=== PATIENT | male | born 1970 | race Caucasian/White ===

== ENCOUNTER 2025-03-21 17:04 | Emergency (ER) | payer BC, SELFPAY ==
[2025-03-21 17:05] VITALS: BP 154/107; PULSE 94; RESP 24; TEMP 36; O2SAT 94
--- NOTE | 2025-03-21 17:18 | CT_ITS ---
PROCEDURE: CTA CHEST W/WO CONTRAST 03/21/2025 REASON FOR EXAM: LEFT CHEST PAIN TECHNIQUE: CTA CHEST W/WO CONTRAST Multiplanar Sagittal and Coronal images were obtained. 3D post processing was performed CONTRAST: Isovue 370 VOLUME: 100 mL One or more dose reduction techniques were used (e.g., Automated exposure control, adjustment of the mA and/or kV according to patient size, use of iterative reconstruction technique). RADIATION DOSE SUMMARY: CTDlvol: 15.8 mGy DLP: 615 mGycm COMPARISON: None FINDINGS: Lymph nodes: No significant thoracic lymphadenopathy. Heart: Unremarkable, without significant coronary calcification. No pericardial effusion. Thoracic Aorta: No thoracic aortic aneurysm or dissection. Pulmonary Vessels: No evidence of acute pulmonary emboli through the lobar branches. Evaluation of the more distal vessels is limited due to contrast timing. Lungs and Airways: Nonobstructing debris near the nitza. Apical predominant centrilobular emphysema. There is rounded and linear consolidation at the left lung base with associated volume loss. There is linear scarring or atelectasis at the right lung base. Noncalcified perifissural nodule measuring 4 mm in the right middle lobe (series 2, image 170). Pleura: Trace left pleural effusion Upper Abdomen: Cholelithiasis. Right adrenal nodule measuring 2.3 cm and -10 Hounsfield units. Bones: There is expansile appearance of the left lateral 4th rib. Healing fracture of the right anterior 6th rib sequela of vertebroplasty at T8. Degenerative changes of the thoracic spine. Diffuse osteopenia. Soft tissues: CT/CTA Chest W/WO Contrast IMPRESSION: 1. No pulmonary embolism to the lobar level. 2. Rounded and linear consolidation at the left lung base with associated volu me loss, likely representing atelectasis or scarring, with infection also possible. Additionally, there is a trace left pl eural effusion. Consider repeat imaging in 3 months to assess stability in this patient with known history of malignancy. 3. Expansile appearance of the left lateral 4th rib, worrisome for involvement of patient's known multiple myeloma. 4. Solid nodule in the right middle lobe measuring 4 mm. Recommend attention on the follow-up imaging detailed above. 5. Nonobstructing debris in the trachea may place this patient at increased ri sk for aspiration. 6. Right adrenal nodule measuring 2.3 cm, likely a benign adenoma. Recommend attention on future imaging. Reading Location: [facility]
--- NOTE | 2025-03-21 17:18 | EKG12_ITS ---
Test Reason : CP Blood Pressure : */* mmHG Vent. Rate : 86 BPM Atrial Rate : 86 BPM P-R Int : 188 ms QRS Dur : 102 ms QT Int : 366 ms P-R-T Axes : 47 -15 46 degrees QTcB Int : 437 ms Normal sinus rhythm Normal ECG Confirmed by Erich Whaley ([id number]), proposal editor RIGO SEPULVEDA ([id number]) on 03/23/2025 1:11:03 PM Referred By: RU Confirmed By: Erich Whaley
--- NOTE | 2025-03-21 17:19 | ED.VIS.CHEST ---
HPI History of Present Illness Chief Complaint: Chest Pain Detail of Chief Complaint: Chest pain Informant: patient Narrative Narrative: Patient presents with left-sided chest pain that started suddenly about an hour and a half ago. Patient was walking at the time. He describes a sharp stabbing pain in his left chest. Gives history of recent kyphoplasty on March 17. Patient also with history of multiple myeloma. Denies fevers chills or sweats. No heart history. Pain worse with movement and deep breath. [facility] Medical History (Updated 03/21/25 @ 19:[address] Cesar Willard, DO) Multiple myeloma COPD (chronic obstructive pulmonary disease) Home Medications ?Medication ?Instructions ?Recorded ?Last Taken ?Type acyclovir 200 mg capsule 400 mg PO BID 03/21/25 Unknown History albuterol sulfate 90 mcg/actuation 2 puff inhalation Q6H PRN PRN 03/21/25 Unknown History aerosol inhaler dyspnea amlodipine 10 mg tablet 10 mg PO DAILY 03/21/25 Unknown History aspirin 81 mg tablet,delayed 81 mg PO DAILY 03/21/25 Unknown History release atorvastatin 20 mg tablet 20 mg PO QHS 03/21/25 Unknown History dexamethasone 4 mg tablet 20 mg PO QWEEK 03/21/25 Unknown History diphenhydramine HCl 50 mg capsule 50 mg PO TID PRN PRN itch 03/21/25 Unknown History (Banophen) fluticasone fur. 200 mcg-umeclid 1 ea inhalation DAILY 03/21/25 Unknown History 62.5 mcg-vilant 25 mcg inhalat.powder (Trelegy Ellipta) lenalidomide 25 mg capsule 25 mg PO DAILY 03/21/25 Unknown History metformin 500 mg tablet,extended 500 mg PO TID 03/21/25 Unknown History release 24 hr ondansetron HCl 8 mg tablet 8 mg PO Q8H PRN PRN nausea/vomiting 03/21/25 Unknown History oxycodone 5 mg tablet 5 mg PO Q6H PRN PRN pain 03/21/25 Unknown History sennosides 8.6 mg tablet (senna) 17.2 mg PO BID PRN PRN constipation 03/21/25 Unknown History sulfamethoxazole 800 1 tab PO .COMPLEX 03/21/25 Unknown History mg-trimethoprim 160 mg tablet varenicline tartrate 1 mg tablet 1 mg PO BID 03/21/25 Unknown History Allergy/AdvReac Type Severity Reaction Status Date / Time No Known Allergies Allergy Verified 03/21/25 17:06 Social History Smoking Status: Current some day smoker tobacco type: cigarettes ROS ROS ED Review of Systems ROS Unobtainable: other Constitutional Constitutional ED: Reports lethargy; Denies chills, fever(s), sweats or weight loss Eyes Eyes: Denies blurry vision, change in vision or diplopia ENT ENT ED: Denies rhinorrhea or sore throat Cardiovascular Cardiovascular: Reports chest pain; Denies orthopnea or racing heartbeat Respiratory/Chest Respiratory/Chest: Denies cough, dyspnea, dyspnea on exertion, orthopnea or sputum Gastrointestinal Gastrointestinal: Denies abdominal pain, diarrhea, nausea or vomiting Genitourinary Genitourinary ED: Denies dysuria, hematuria or urinary frequency Musculoskeletal Musculoskeletal: Denies arthralgias, back pain, myalgias or neck pain Integumentary Denies abscess, Abrasions or rash Neurologic Neurologic: Denies headache(s) or weakness Psychiatric Psychiatric: Denies anxiety, depression or suicidal thoughts Endocrine Endocrinology: Denies polydipsia, polyphagia or polyuria Hematologic/Lymphatic Hematologic/Lymphatic: Denies easy bleeding, easy bruising or lymphadenopathy Allergic/Immunologic Allergic/Immunologic ED: Denies mouth swelling, tongue swelling or urticaria EXAM Physical Exam Const Vital Signs: 03/21/25 17:05 03/21/25 17:14 03/21/25 17:36 Temperature 96.8 F L Temperature Source Temporal Pulse Rate 94 Respiratory Rate 24 H Respiratory Effort Normal Blood Pressure 154/107 H Blood Pressure Mean 122 Pulse Ox 94 Oxygen Delivery Method Room Air Room Air 03/21/25 18:04 03/21/25 19:00 Temperature Temperature Source Pulse Rate 88 81 Respiratory Rate 22 H 16 Respiratory Effort Blood Pressure 138/106 H 126/89 H Blood Pressure Mean 116 101 Pulse Ox 93 91 Oxygen Delivery Method Room Air Room Air Positive well nourished and well developed General Appearance ED: well developed and NAD HEENT Reports TM's clear and moist mucous membranes normocephalic and atraumatic; Negative for trauma or tenderness Tympanic Membrane ED: Yes TM's clear Eyes PERRL and EOMs intact bilaterally General Eye ED: Negative for pale conjunctiva or scleral icterus Neck no lymphadenopathy, supple and no JVD General: Negative for tenderness Chest Wall inspection of chest normal and palpation of chest normal Chest: Negative for tenderness Resp normal respiratory effort and clear to auscultation bilaterally Effort and Inspection: Negative for respiratory distress or pain with movement Auscultation: Negative for rhonchi, wheezes or diminished lung sounds Cardio regular rate, regular rhythm, S1 normal heart sound, S2 normal heart sound and no murmurs Peripheral Pulses: pulses 2+ throughout GI normal to inspection, nondistended, normoactive bowel sounds, soft to palpation, non-tender, non-distended and no masses Back/Spine no CVA tenderness and no thoracic nor lumbar tenderness Extremity normal to inspection General Extremety ED: Negative for edema General Extremity: Negative for edema Neuro oriented x3, CN's II-XII intact bilaterally, no sensory deficits noted and gait normal Sensorium / Orientation: awake, alert, oriented to person, oriented to place and oriented to time Motor Exam: strength 5/5 throughout and strength abnormal Psych mental status grossly normal Skin no rashes or lesions noted and no wounds Heart Score History: Slightly/Non-Suspicious ECG: Normal Age: >45 - <65 years Risk Factors: 1 or 2 Risk Factors Troponin: </= Normal Limit Score: 2 MDM MDM MDM Narrative Medical decision making narrative: Patient presents with left chest wall pain that started suddenly an hour and a half ago. Denies any injury. Pleuritic and worse with movement especially movement of his left arm. Patient with history of multiple myeloma and receiving care chemotherapy weekly. No history of recent travel. He did have kyphoplasty to T8 vertebrae on the 16th of the month. Clinically looks well. I will establish. Was medicated with morphine and Zofran and then was given a milligram of Dilaudid IV. CBC with differential obtained showing of 8.0 with hemoglobin 13.3 and platelet count of 337. Chemistry is unremarkable. Troponin is normal at 7. I did obtain a CTA of the chest to rule out PE and this was negative for PE or dissection. He did have an expansile left fourth rib lesion likely related to his multiple myeloma. Patient also noted to have sequela changes related to the kyphoplasty at T8. Patient also had some linear consolidation left lung base with associated volume loss likely representing atelectasis or scarring with infection also possible. Clinically he has not been ill and I do not think this is infectious. Patient will be discharged home and advised to follow-up with his oncologist. He has oxycodone for pain at home and he is to continue with that. I do not feel he has an acute coronary syndrome. Lab Data Attestation: I reviewed the patient's lab results. Labs: Laboratory Results - last 24 hr 03/21/25 17:12 WBC 8.0 RBC 4.30 L Hgb 13.3 Hct 38.3 L MCV 89.1 MCH 30.9 MCHC 34.7 RDW Std Deviation 48.9 H RDW Coeff of Emmett 15.0 H Plt Count 337 MPV 9.8 Immature Gran % (Auto) 0.200 Neut % (Auto) 55.7 Lymph % (Auto) 34.0 [place] % (Auto) 8.3 Eos % (Auto) 1.4 Baso % (Auto) 0.4 Absolute Neuts (auto) 4.5 Absolute Lymphs (auto) 2.73 Nucleated RBC % 0 Sodium 138 Potassium 4.1 Chloride 101 Carbon Dioxide 24.3 Anion Gap 13 BUN 18 Creatinine 0.91 Estim Creat Clear Calc 125.74 Est GFR (MDRD) Non-Af 99 BUN/Creatinine Ratio 19.7 Glucose 104 H Calcium 10.2 Troponin T High Sens 7 Radiography Diagnostic Testing: Clinical Impression(s) from Imaging Studies Chest CTA 03/21/25 17:18 IMPRESSION: 1. No pulmonary embolism to the lobar level. 2. Rounded and linear consolidation at the left lung base with associated volume loss, likely representing atelectasis or scarring, with infection also possible. Additionally, there is a trace left pleural effusion. Consider repeat imaging in 3 months to assess stability in this patient with known history of malignancy. 3. Expansile appearance of the left lateral 4th rib, worrisome for involvement of patient's known multiple myeloma. 4. Solid nodule in the right middle lobe measuring 4 mm. Recommend attention on the follow-up imaging detailed above. 5. Nonobstructing debris in the trachea may place this patient at increased risk for aspiration. 6. Right adrenal nodule measuring 2.3 cm, likely a benign adenoma. Recommend attention on future imaging. Reading Location: [facility] EKG Initial EKG: Attestation: I personally reviewed and interpreted this EKG as follows: Comments: Sinus rhythm with rate of 86 bpm with no acute ST segment changes Discharge Plan Triage Chief Complaint: Chest Pain ED Provider: Cesar Willard Dx/Rx/DC Orders Clinical Impression: Chest wall pain, Multiple myeloma Instructions: Multiple Myeloma Overview, ED Chest Pain, Uncertain Cause Prescriptions: No Action atorvastatin 20 mg tablet 20 mg PO QHS diphenhydramine HCl [Banophen] 50 mg capsule 50 mg PO TID PRN PRN (Reason: itch) aspirin 81 mg tablet,delayed release (DR/EC) 81 mg PO DAILY amlodipine 10 mg tablet 10 mg PO DAILY dexamethasone 4 mg tablet 20 mg PO QWEEK acyclovir 200 mg capsule 400 mg PO BID albuterol sulfate 90 mcg/actuation HFA aerosol inhaler 2 puff inhalation Q6H PRN PRN (Reason: dyspnea) Trelegy Ellipta 200-62.5-25 mcg blister with device 1 ea INHALATION DAILY lenalidomide 25 mg capsule 25 mg PO DAILY Rx Instructions: swallow whole with glass of water; do not open, crush, chew , break, or dissolve metformin 500 mg tablet extended release 24 hr 500 mg PO TID sennosides [senna] 8.6 mg tablet 17.2 mg PO BID PRN PRN (Reason: constipation) ondansetron HCl 8 mg tablet 8 mg PO Q8H PRN PRN (Reason: nausea/vomiting) sulfamethoxazole-trimethoprim 800-160 mg tablet 1 tab PO .COMPLEX Rx Instructions: 1 TAB orally Saturday, Saturday, Saturday; oxycodone 5 mg tablet 5 mg PO Q6H PRN PRN (Reason: pain) varenicline tartrate 1 mg tablet 1 mg PO BID Primary Care Provider: Sharyn Watts Referrals: Sharyn Watts [Other] Activity Restrictions/Additional Instructions: Follow-up with your oncologist within the next 3 to 5 days Print Language: Togolese Disposition Disposition: Home, Self Care
[2025-03-21] MEDS: 0.9% Normal Saline (1000mL) 1,000 ML 150 ML IV (17:27)
[2025-03-21 17:37] VITALS: BMI 38.5
--- OUTSIDE RECORDS SUMMARY | 2025-03-21 17:38 | XMS RPT_ITS | CCD ---
Author Organization [facility] Care Team Providers Care Ict Managers Name Role Phone PHYSICIAN, NONE Primary Care Physician Unavailab Pearl DYE, DR LUZ Vang Primary Care Physician CONOR DYE, DR LUZ Vang Primary Care Unavailable ERASMO DIAZ MD Attending Unavaila daniel PERDOMO MD, DR LUZ Vang Primary Care Unavailable DAVID DYE, DR WILFRED Rodriguez Attending Sushma shafer PHYSICIAN, NONE Primary Care Unavailable ZENAIDA BLANK MD Attending Unavailable LUIS DYE, DR QIU Admitting Unavailab jonathan PERDOMO MD, DR LUZ Vang Attending Unavailable CONOR DYE, DR LUZ Vang Primary Care Unavailable CONOR DYE, DR LUZ Vang Attending Unavailable CONOR DYE, DR LUZ Vang Primary Care Unavailable CONOR DYE, DR LUZ Vang Attending Unavailable PHYSICIAN, NONE Primary Care Unavailable CONOR DYE, DR LUZ Vang Attending Unavailable CONOR DYE, DR LUZ Vang Primary Care Unavailable NICOLE DYE, [facility] Primary Care Physician Unavailable Primary Care Provider Unavailrodolfo e Maura Moran DO Primary Care Provider SELF Referring Unavailable LONG, MARQUISE MATY Attending Unavailable LONG, MARQUISE MATY Referring Unavailable LONG, MARQUISE MATY Attending Unavailable MAURA MORAN Primary Care Unavailable LONG, MARQUISE MATY Referring Unavailable MAURA MORAN Primary Care Unavailable MAURA MORAN Primary Care Unavailable Milagros DYE, Howard Easton Unavailable MAURA MORAN DO Primary Care Physician Howadr Linares MD Unavailable Bharati PERRY, Lucia Unavailable [phone] Jakob Alvarado MD Unavailable [phone] JAKOB ALVARADO Referring Unavailable JAKOB ALVARADO Attending Unavailable HOEHNEN, MAURA C Primary Care Unavailable NICOLE DYE, TALIB Primary Care Unavailable MILAGROS DYE, DR LAWRENCE Attending Unavailable NICOLE DYE, TALIB Attending Unavailable NICOLE DYE, TALIB Primary Care Unavailable CONOR DYE, DR LUZ Vang Attending Unavailable NICOLE DYE, TALIB Primary Care Unavailable HOEHNEN DO, MAURA Attending Unavailable HOEHNEN DO, MAURA Primary Care Unavailable NICOLE DYE, TALIB Primary Care Unavailable MILAGROS DYE, DR LAWRENCE Attending Unavailable NICOLE DYE, TALIB Primary Care Unavailable MILAGROS DYE, DR LAWRENCE Attending Unavailable NICOLE DYE, TALIB Primary Care Unavailable MILAGROS DYE, DR LAWRENCE Attending Unavailable DR HOWARD LINARES MD Attending Unavailable HOEHNEN DO, MAURA Primary Care Unavailable NICOLE DYE, TALIB Primary Care Unavailable MILAGROS DYE, DR LAWRENCE Attending Unavailable NICOLE DYE, TALIB Primary Care Unavailable MILAGROS DYE, DR LAWRENCE Attending Unavailable MILAGROS DYE, DR LAWRENCE Attending Unavailable HOEHNEN DO, MAURA Primary Care Unavailable HOEHNEN DO, MAURA Attending Unavailable HOEHNEN DO, MAURA Primary Care Unavailable TEENA POSEY MD Attending Unavailable NICOLE DYE, TALIB Primary Care Unavailable HOEHNEN DO, MAURA Attending Unavailable HOEHNEN DO, AMURA Primary Care Unavailable HOEHNEN DO, MAURA Primary Care Unavailable MILAGROS DYE, DR LAWRENCE Attending Unavailable NARCISO MONTERO MD, I Attending Unavailable HOEHNEN DO, MAURA Primary Care Unavailable DR HOWARD LINARES MD Attending Unavailable NICOLE DYE, TALIB Primary Care Unavailable TEENA POSEY MD Attending Unavailable HOEHNEN DO, MAURA Primary Care Unavailable DR LUZ PERDOMO MD Attending Unavailable NICOLE DYE, [facility] Primary Care Unavailable NICOLE DYE, [facility] Primary Care Unavailable DR HOWARD LINARES MD Attending Unavailable HOEHNEN DO, MAURA Attending Unavailable NICOLE DYE, TALIB Primary Care Unavailable DR HOWARD LINARES MD Attending Unavailable NICOLE DYE, TALIB Primary Care Unavailable DR HOWARD LINARES MD Attending Unavailable NICOLE DYE, TALIB Primary Care Unavailable HOEHNEN DO, MAURA Attending Unavailable NICOLE DYE, TALIB Primary Care Unavailable HOEHNEN DO, MAURA Attending Unavailable NICOLE DYE, TALIB Primary Care Unavailable NICOLE DYE, TALIB Primary Care Unavailable DR HOWARD LINARES MD Attending Unavailable DIMITRIS DYE, DR SIMMS Attending Unavailable NICOLE DYE, TALIB Primary Care Unavailable DIMITRIS DYE, DR SIMMS Attending Unavailable NICOLE DYE, TALIB Primary Care Unavailable MILAGROS DYE, DR LAWRENCE Attending Unavailable HOEHNEN DO, MAURA Primary Care Unavailable MILAGROS DYE, DR LAWRENCE Attending Unavailable HOEHNEN DO, MAURA Primary Care Unavailable MILAGROS DYE, DR LAWRENCE Attending Unavailable HOEHNEN DO, MAURA Primary Care Unavailable NICOLE DYE, TALIB Primary Care Unavailable MILAGROS DYE, DR LAWRENCE Attending Unavailable NICOLE DYE, TALIB Primary Care Unavailable MILAGROS DYE, DR LAWRENCE Attending Unavailable NICOLE DYE, TALIB Primary Care Unavailable MILAGROS DYE, DR LAWRENCE Attending Unavailable NICOLE DYE, TALIB Primary Care Unavailable RHONDA FERRARI MD Attending Unavailable CEE CROFT Attending Manjula penelopeble NICOLE DYE, TALIB Primary Care Unavailable NICOLE DYE, TALIB Primary Care Unavailable RHONDA FERRARI MD Attending Unavailable NICOLE DYE, TALIB Primary Care Unavailable DR HOWARD LINARES MD Attending Unavailable HOEHNEN DO, MAURA Attending Unavailable NICOLE DYE, TALIB Primary Care Unavailable HOEHNEN DO, MAURA Attending Unavailable NICOLE DYE, TALIB Primary Care Unavailable NICOLE DYE, TALIB Primary Care Unavailable DR HOWARD LINARES MD Attending Unavailable NICOLE DYE, TALIB Primary Care Unavailable DR HOWARD LINARES MD Attending Unavailable NICOLE DYE, TALIB Primary Care Unavailable DR HOWARD LINARES MD Attending Unavailable HOEHNEN DO, MAURA Primary Care Unavailable DR HOWARD LINARES MD Attending Unavailable HOEHNEN DO, MAURA Attending Unavailable HOEHNEN DO, MAURA Primary Care Unavailable NARCISO MONTERO MD, I Attending Unavailable HOEHNEN DO, MAURA Primary Care Unavailable DR HOWARD LINARES MD Attending Unavailable HOEHNEN DO, MAURA Primary Care Unavailable DR HOWARD LINARES MD Attending Unavailable HOEHNEN DO, MAURA Primary Care Unavailable NICOLE DYE, TALIB Primary Care Unavailable ALEKSANDER BARNES Attending Unavail able DR LUZ PERDOMO MD Primary Care Unavailable TALIB RIVERA MD Attending Unavailable NICOLE DYE, TALIB Primary Care Unavailable MILAGROS DYE, DR LAWRENCE Attending Unavailable [facility], [facility] Unavailable DIMITRIS DYE, DR SIMMS Attending Unavailable TEENA MARISCAL MD Unavailable DIMITRIS DYE, DR SIMMS Attending [facility] DIMITRIS DYE, DR SIMMS Attending Unavailable TEENA POSEY MD Attending Unavailable NICOLE DYE, TALIB Primary Care Unavailable DIMITRIS DYE, DR SIMMS Attending Unavailable NICOLE DYE, TALIB Primary Care Unavailable REBA HERNANDEZ DO Consulting Unavailable DIMITRIS DYE, DR SIMMS Attending Unavailable NICOLE DYE, TALIB [facility] Un[facility] Unavailable MILAGROS DYE, DR LAWRENCE Attending Unavailable Medications Current Medications Medication Drug Class(es) Dates Sig (Normalized) Sig (Original) acetaminophen 500 mg oral tablet (18 sources) Start: 01-07-2025 Tylenol Extra Strength 500 mg oral tablet Dose : 1,000 mg = 2 tab(s), Oral, Saturday, BEFORE CHEMO, 0 Refill(s) Start Date: 01/07/25 Status: Ordered Repeat number: 1 acyclovir 200 mg oral capsule (20 sources) Herpesvirus Nucleoside Analog DNA Polymerase Inhibitor, Herpes Simplex Virus Nucleoside Analog DNA Polymerase Inhibitor, Herpes Zoster Virus Nucleoside Analog DNA Polymerase Inhibitor Start: 09-29-2024 acyclovir 200 mg oral capsule Dose : 400 mg = 2 cap(s), Oral, BID, # 360 cap(s), 1 Refill(s), Pharmacy: [facility]/pharmacy #[id number], 180.3, cm, 02/17/25 14:50:00 EDT, Height, kg, 02/17/25 14:50:00 EDT, Dosing Weight Start Date: 02/18/25 Status: Ordered Quantity: 360.0 Unit: cap(s) Repeat number: 2 take 2 capsules by mouth twice d aily acyclovir (ZOVIRAX) 200 mg capsule Take 400 mg by mouth two times a day. Active [id number] 200 actuat albuterol 0.09 mg/actuat metered dose inhaler (15 sources) beta2-Adrenergic Agonist Start: 06-11-2024 take 2 puff(s) by inhalation every six hours as needed albuterol HFA (PROVENTIL HFA, VENTOLIN HFA) 90 mcg/actuation inhaler 2 PUFFS NEEDED INHALATION EVERY 6 HRS NEEDED FOR SHIRTNESS OF BREATH FOR 30 DAYS 06/11/2024 Active amLODIPine 10 mg oral tablet (20 sources) Dihydropyridine Calcium Channel Brittany Start: 08-31-2024 amLODIPine 10 mg oral tablet Dose : 10 mg = 1 tab(s), Oral, qAM, 0 Refill(s) Start Date: 08/31/24 Status: Ordered Repeat number: 1 aspirin 81 mg delayed release oral tablet (20 sources) Platelet Aggregation Inhibitor, Nonsteroidal Anti-inflammatory Drug Start: 10-27-2024 aspirin 81 mg oral delayed release tablet Dose : 81 mg = 1 tab(s), Oral, Daily, # 30 tab(s), 5 Refill(s), Pharmacy: [facility]/pharmacy #[id number], 181.6, cm, 12/02/24 9:35:00 EDT, Height, kg, 12/02/24 9:35:00
[2025-03-21 17:40] LABS: Hematocrit 38.3 % (40-54); Hemoglobin 13.3 g/dL (13.0-16.5); Immature Granulocytes Count 0.020 X10^3/uL (0.0-0.0); Mean Corp Hgb Conc 34.7 g/dL (32-36); Mean Corpuscular Volume 89.1 fL (80-94); Mean Platelet Vol. 9.8 fl (6.2-12.0); NRBC Flagged by Analyzer 0 % (0-5); Platelet Count 337 K/mm3 (150-450); RBC Distribution Width CV 15.0 % (11.6-14.6); RBC Distribution Width SD 48.9 fl (35.1-43.9); Red Blood Count 4.30 M/mm3 (4.6-6.2); White Blood Count 8.0 K/mm3 (4.4-11.0)
[2025-03-21 18:04] VITALS: BP 138/106; PULSE 88; RESP 22; O2SAT 93
[2025-03-21 18:13] LABS: Anion Gap 13 (5-15); BUN 18 mg/dL (4-19); BUN/Creat Ratio 19.7 RATIO (10-20); Calcium,Total 10.2 mg/dL (7.6-11.0); Carbon Dioxide 24.3 mmol/L (21.0-32.0); Chloride 101 mmol/L (98-108); Estimated Creatinine Clearance 125.74 ml/min (50-250); Glucose 104 mg/dL (70-99); Potassium 4.1 mmol/L (3.3-5.1); Troponin T High Sensitivity 7 ng/L (<=22)
[2025-03-21] MEDS: DiphenhydrAMINE 50 MG/ML Syringe 25 MG IV (18:38)
[2025-03-21 19:00] VITALS: BP 126/89; PULSE 81; RESP 16; O2SAT 91
[2025-03-21 19:34] VITALS: BP 126/89; PULSE 85; RESP 18; TEMP 36.6; O2SAT 93
[2025-03-21 20:11] LABS: Troponin T High Sens 2 HR 7 ng/L (<=22)
== END 2025-03-21 19:39 | disposition home or self-care (01) ==
PROVIDERS: Emergency Provider Emergency Medicine; Visit Provider Emergency Medicine
DX: R07.89 Other chest pain (principal); C90.00 Multiple myeloma not having achieved remission; J44.9 Chronic obstructive pulmonary disease, unspecified; Z79.51 Long term (current) use of inhaled steroids; Z79.82 Long term (current) use of aspirin; Z79.899 Other long term (current) drug therapy; Z79.84 Long term (current) use of oral hypoglycemic drugs
CPT/HCPCS: 71275; 80048; 84484; 85025; 93005; 96361; 96374; 96375; 96376; 99285; Q9967; A4216; J2405